=== PATIENT | male | born 1985 | race Caucasian/White ===

== ENCOUNTER 2021-07-25 14:49 | Emergency (ER) | payer BC, SELFPAY ==
[2021-07-25 14:51] VITALS: BP 134/97; PULSE 91; RESP 20; TEMP 36.9; O2SAT 98; BMI 25.1
[2021-07-25 15:46] LABS: Chloride 100 mmol/L (98-107); Potassium 4.1 mmoL/L (3.5-5.1); Sodium 138 mmol/L (136-145)
[2021-07-25 15:49] LABS: Alanine Aminotransferase 29 U/L (12-78); Albumin Level 4.4 g/dl (3.5-5.0); Albumin/Globulin Ratio 1.6 (1.1-1.8); Alkaline Phosphatase 59 U/L (38-126); Anion Gap 13.1 mEq/L (5-15); Aspartate Amino Transferase 42 U/L (17-59); Bilirubin,Total 0.7 mg/dl (0.2-1.3); Blood Urea Nitrogen 16 mg/dl (9-20); Calcium 9.3 mg/dl (8.4-10.2); Carbon Dioxide 29 mmol/L (22.0-30.0); Creatinine Clearance Estimated 112 mL/min (50-200); Estimated Glomerular Filt Rate 84 ml/min (>60); GFR (African American) 101 ML/MIN (>60); Globulin 2.8 g/dL (1.3-3.2); Glucose 101 mg/dl (74-100); Lipase 66 U/L (23-300); Total Protein,Serum 7.2 g/dl (6.3-8.2)
[2021-07-25 15:57] LABS: Basophils % 0.3 % (0.1-2.0); Eosinophils % 0.4 % (0.1-12.0); Hemoglobin 15.1 g/dL (14.1-18.0); Lymphocytes # 1.7 K/mm3 (0.7-4.5); Lymphocytes % 27.9 % (10-50); Mean Corpuscular HGB Conc 33.5 g/dL (31.8-35.4); Mean Corpuscular Hemoglobin 30.6 pg (27.0-31.2); Mean Corpuscular Volume 91.1 fl (80-94); Mean Platelet Volume 7.2 fl (7.4-10.4); Monocytes # 0.3 K/mm3 (0.1-1.0); Monocytes % 5.2 % (1.7-9.3); Neutrophils % 66.2 % (37.0-80.0); Platelet Count 257 K/mm3 (142-424); Red Blood Count 4.94 M/mm3 (4.60-6.20); Red Cell Distribution Width 13.1 % (11.5-17.5); White Blood Count 6.1 K/mm3 (4.8-10.8)
--- NOTE | 2021-07-25 16:56 | PC.NURSE ---
Pt medicated per MAY. Updated on POC. No new needs at this time
--- NOTE | 2021-07-25 17:14 | HMH.EDGENADL ---
ED Disposition Clinical Impression: Abdominal pain Qualifiers: Abdominal location: unspecified location Qualified Code(s): R10.9 - Unspecified abdominal pain Disposition: Home, Self-Care Condition on Discharge: Good Instructions: DI for Acute Abdominal Pain Additional Instructions: [id number] Pepcid AC. Continue stool softeners. Follow-up with your primary care provider, call to make appointment. Additional instructions for ABDOMINAL PAIN: See your physician as soon as possible for further evaluation. Return immediately if worsening abdominal pain, vomiting, shortness of breath, fever, vomiting of blood or abdominal distention. Referrals: Rory Lara MD [Primary Care Provider] - - Critical Care Critical Care Time: No Attestation: On 07/25/21, the high probability of a clinically significant, sudden or life threatening deterioration of the following system(s) required my full and direct attention, intervention and personal management. The time I documented below is in addition to time spent performing reported procedures but includes the following listed in this critical care notation. Medical Decision Making - Inocencio Inquiry Pt receiving controlled substance: No Vital Signs: 07/25/21 14:51 Temperature 98.5 F Temperature Source Oral Pulse Rate [Right Radial] 91 H Respiratory Rate 20 Blood Pressure [Right Arm] 134/97 H Blood Pressure Mean [Right Arm] 109 Blood Pressure Source [Right Arm] Automatic Cuff Blood Pressure Position [Right Arm] Sitting 02 Sat by Pulse Oximetry 98 Oxygen Delivery Method Room Air - Lab Data Lab Results 07/25/21 15:28: WBC 6.1, RBC 4.94, Hgb 15.1, Hct 45.0, MCV 91.1, MCH 30.6, MCHC 33.5, RDW 13.1, Plt Count 257, MPV 7.2 L, Neut % (Auto) 66.2, Lymph % (Auto) 27.9, [place] % (Auto) 5.2, Eos % (Auto) 0.4, Baso % (Auto) 0.3, Neut # (Auto) 4.0, Lymph # (Auto) 1.7, [place] # (Auto) 0.3, Eos # (Auto) 0.0, Baso # (Auto) 0.0 07/25/21 15:28: Sodium 138, Potassium 4.1, Chloride 100, Carbon Dioxide 29, Anion Gap 13.1, BUN 16, Creatinine 1.00, Estimated Creat Clear 112, Estimated GFR 84, Est GFR ( Amer) 101, Glucose 101 H, Calcium 9.3, Total Bilirubin 0.7, AST 42, ALT 29, Alkaline Phosphatase 59, Total Protein 7.2, Albumin 4.4, Globulin 2.8, Albumin/Globulin Ratio 1.6, Lipase 66 07/25/21 17:25: Urine Color Yellow, Urine Appearance Clear, Urine pH 6.0, Ur Specific [place] 1.020, Urine Protein Negative, Urine Glucose (UA) Negative, Urine Ketones 2+, Urine Blood Trace-i, Urine Nitrate Negative, Urine Bilirubin Negative, Urine Urobilinogen 0.2, Ur Leukocyte Esterase Negative, Urine RBC Occasional, Urine WBC None, Ur Squamous Epith Cells None, Urine Bacteria Trace Result diagrams: 07/25/21 15:28 07/25/21 15:28 Orders (Tests/Meds): ED MEDICATIONS Generic Name Dose Route Start Last Admin Trade Name Freq PRN Reason Stop Dose Admin Sodium Chloride 10 ml 07/25/21 15:23 Sodium Chloride 0.9% 10ml Flush Syringe IV 08/24/21 15:22 NEEDED PRN Maintain IV Site Discontinued Medications Generic Name Dose Route Start Last Admin Trade Name Freq PRN Reason Stop Dose Admin Lactated Ringer's 1,000 mls @ 999 mls/hr 07/25/21 16:33 07/25/21 16:52 Lactated Ringer's 1000 Ml Bag IV 07/25/21 17:33 999 mls/hr .Q1H1M ONE Administration Iopamidol 75 ml 07/25/21 18:43 07/25/21 18:44 Iopamidol-370 (76%);100ml Bottle IV 07/25/21 18:44 75 ml ONCE ONE Administration Sodium Chloride 10 ml 07/25/21 18:43 07/25/21 18:44 Sodium Chloride 0.9% 10ml Syr (Rad Only) IV 07/25/21 18:44 10 ml ONCE ONE Administration - CT Data CT Scan: Abdomen, Pelvis Time Received: 20:[address] Reviewed: Yes: I have viewed the radiologist's interpretation Findings Narrative: PROCEDURE INFORMATION: Exam: CT Abdomen And Pelvis With Contrast Exam date and time: 07/25/2021 6:32 PM Age: 36 years old Clinical indication: Abdominal pain; Patient HX: Epigastric pain
[2021-07-25 17:33] LABS: Microscopic, Urine URINE MICROSCOPIC (MICROSCOPIC)
[2021-07-25 17:51] LABS: Appearance,Urine CLEAR (Clear); Bilirubin,Urine Negative (Negative); Blood, Urine TRACE-I (Negative); Color,Urine YELLOW (Yellow); Glucose,Urine (UA) Negative (Negative); Ketones,Urine 2+ (Negative); Leukocyte Esterase,Urine Negative (Negative); Nitrate,Urine Negative (Negative); Protein,Urine Negative (Negative); Urobilinogen,Urine 0.2 EU/dl (0.2)
--- NOTE | 2021-07-25 18:11 | CT_ITS ---
PROCEDURE INFORMATION: Exam: CT Abdomen And Pelvis With Contrast Exam date and time: 07/25/2021 6:32 PM Age: 36 years old Clinical indication: Abdominal pain; Patient HX: Epigastric pain after eating; Additional info: Abdo pain epigast and llq TECHNIQUE: Imaging protocol: Computed tomography of the abdomen and pelvis with contrast. Radiation optimization: All CT scans at this facility use at least one of these dose optimization techniques: automated exposure control; mA and/or kV adjustment per patient size (includes targeted exams where dose is matched to clinical indication); or iterative reconstruction. Contrast material: ISOVUE; Contrast volume: 75 ml; Contrast route: IV; COMPARISON: No relevant prior studies available. FINDINGS: Liver: Normal. No mass. Gallbladder and bile ducts: Normal. No calcified stones. No ductal dilation. Pancreas: Normal. No ductal dilation. Spleen: Normal. No splenomegaly. Adrenal glands: Normal. No mass. Kidneys and ureters: Bosniak 1 cysts of the superior pole the right kidney measures 1.6 cm in diameter. No follow-up recommended. Stomach and bowel: Unremarkable. No obstruction. No mucosal thickening. Appendix: The appendix is not definitely identified, but there are no primary or secondary CT findings to suggest a diagnosis of acute appendicitis. Intraperitoneal space: Unremarkable. No free air. No significant fluid collection. Arteries: Unremarkable. No abdominal aortic aneurysm. Lymph nodes: Unremarkable. No enlarged lymph nodes. Urinary bladder: Unremarkable as visualized. Reproductive: Unremarkable as visualized. Bones/joints: Unremarkable. No acute fracture. Soft tissues: Normal. IMPRESSION: No CT findings that explain patient's symptoms. COMMENTS: Consistent with the [employer]'s Incidental Findings Committee white paper (J Am Juan Radiol 2018): Any incidental renal lesion less than 1 cm or classified as too small to characterize, or any incidental cystic renal lesion characterized as simple-appearing, is likely benign. No follow-up imaging is recommended for these lesions per consensus recommendations based on imaging criteria.
[2021-07-25 18:19] LABS: Bacteria,Urine Trace /lpf; RBC,Urine Occasional #/hpf (0-3)
[2021-07-25 20:20] VITALS: BP 124/74; PULSE 90; RESP 20; TEMP 36.9; O2SAT 98
== END 2021-07-25 20:21 | disposition home or self-care (01) ==
PROVIDERS: Emergency Provider Emergency Medicine; PCP Family Medicine
DX: R10.13 Epigastric pain (principal)
CPT/HCPCS: 74177; 80053; 81001; 83690; 85025; 99284; Q9967

== ENCOUNTER → 2022-06-14 14:31 | Outpatient (CLI) | payer BC, SELFPAY ==
--- NOTE | 2022-06-14 14:36 | XR_ITS ---
FINAL REPORT CLINICAL HISTORY: midline thoracic back pain, pain in left si joint COMPARISON: None FINDINGS: THORACIC SPINE: Three views of the thoracic spine were obtained. There is no fracture present. There is no malalignment. There are no significant degenerative changes. IMPRESSION: No acute process. LUMBAR SPINE: Five views of the lumbar spine were obtained. There is no fracture present. There is no malalignment. There are mild degenerative changes. Small osteophytes are noted. IMPRESSION: Degenerative change in osteophytes with no acute process. Reviewed, Interpreted and Dictated by Prem Santiago III, MD Transcribed by Hilary Williamson Authenticated and [facility]
== END ==
LOC: RAD 14:33
PROVIDERS: PCP Family Medicine; Visit Provider Physician Assistant
DX: M54.6 Pain in thoracic spine (principal); M53.3 Sacrococcygeal disorders, not elsewhere classified; M54.50 Low back pain, unspecified
CPT/HCPCS: 72084

== ENCOUNTER 2024-09-24 10:17 | Outpatient (CLI) | payer OTHER, SELFPAY ==
--- OUTSIDE RECORDS SUMMARY | 2024-07-23 07:15 | XMS_ITS ---
Author Organization [facility] Address [address] [facility] [address] [id number] Care Team Providers Care Instrument And Controls Technician Name Role Phone Rory Lara Unavailable [phone] Sunshine Baumann Unavailable [phone] Allergies No Known Allergies REASON FOR VISIT BLOOD WORK Medications Medication SIG (Take, Route, Frequency, Duration) Notes Start Date End Date Status EpiPen 2-Mikey 0.3 MG/0.3ML as directed Injection 09/20/2022 Active Lisinopril 20 MG 1 tab(s) orally once a day Active hydrOXYzine HCl 25 MG 1 tablet as needed Orally every 8 hrs 10/24/2023 Active Nystatin 754975 UNIT/GM 1 application Ex ternally Three times a day 01/16/2024 Active Ivermectin 3 MG 5 tab Orally Once a day 01/16/2024 Not-Taking Xyzal Allergy 24HR 5 MG 1 tablet in the evening Orally Once a day; Duration: 30 day(s) Active Methadone HCl 40 MG 1.75 tablets Orally Once a day Active busPIRone HCl 10 MG 1 tablet Orally Thre e times a day; Duration: 30 day(s) Active clomiPHENE Citrate 50 MG 1 tab(s) orally once a day; Duration: 5 day(s) Active Problems Problem Type SNOMED Code ICD Code Onset Dates Problem Status W/U Status Risk Notes Problem Anxiety ([id number]) Anxiety (F41.9) Active confirmed Vital Signs Blood pressure systolic 108 mm Hg 07/24/19 25 Blood pressure diastolic 76 mm Hg 025 Heart Rate 92 /min 07/23/2024 Height 70 in 07/23/2024 Weight 168 lbs 07/23/2024 BMI 24.1 kg/m2 07/23/2024 Encounters Encounter Location Date Provider Diagnosis [facility] [address] [place] [id number] 07/23/2024 Sunshine Baumann Anxiety F41.9 ; Hair loss L65.9 and BMI 24.0-24.9, adult Z68.24 Assessments Encounter Date Diagnosis (ICD Code) Assessment Notes Treatment Notes Treatment Clinical Notes Section Notes 07/23/2024 Anxiety (ICD-10 - F41.9) 07/23/2024 Hair loss (ICD-10 - L65.9) Will remove items from his pockets and see if hair loss continues. If so, will get labs. 07/23/2024 BMI 24.0-24.9, adult (ICD-10 - Z68.24) Plan Of Treatment Medication Medication Name Sig Start Date Stop Date Notes busPIRone HCl 10 MG 1 tablet Orally Thre e times a day; Duration: 30 day(s) Treatment Notes Assessment Notes Hair loss Will remove items fr om his pockets and see if hair loss continues. If so, will get labs. Next Appt Details Follow Up: prn, Reason: Progress Notes * JULIANNA GIFFORDOB:1985 (39 yo M)Acc No.[id number]:07/23/2024 Progress Notes Patient: EDUARDO PELAEZ Provider: PAVEL Alexis :1985 A ge:39 Y S ex:Male Date:07/23/2024 Address:[address] [place] [address] Subjective: * Chief Complaints: * 1 . BLOOD WORK. * HPI: H PI: 39 year old male presents with c/o Patient is here today for? Pt has noticed he has been losing patches of hair on his legs. He is unsure if it is due to his pants rubbing or something else.. P sychology: He has been getting buspar from an online physician. He would like this prescribed here and the dose increased. * ROS: D ERMATOLOGY: no R adri. n o H sheela. G ASTROENTEROLOGY: no N ausea. n o V omiting. U ROLOGY: no D ifficulty urinating. n o B lood in urine. * Medical History: H ypertension, Seasonal Allergies, Herpes labialis, Testosterone deficiency, Vitamin B 12 deficiency, Dyslipidemia, Opioid addiction - attending [facility]. * Surgical History: L T Hand, Third Digit 1999. * Family History: F ather: alive 64 yrs, diagnosed with Hypertension. M other: , Hemachromatosis.?Paternal Grand Father: diagnosed with Cancer. P aternal Grand Mother: diagnosed with Hypertension, Cancer. M aternal Grand Father: diagnosed with Cancer. M aternal Grand Mother: diagnosed with Hypertension. * Social History: C URRENT TOBACCO USE: No . A lcohol: no. Past smoking status: previous history. * Medications: T aking busPIRone HCl 10 MG Tablet 1 tablet Orally Twice a day , Taking Xyzal Allergy 24HR 5 MG Tablet 1 tablet in the evening Orally Once a day , Taking Methadone HCl 40 MG Tablet Soluble 1.75 tablets Orally Once a day , Taking clomiPHENE Citrate 50 MG Tablet 1 tab(s) orally once a day , Taking EpiPen 2-Mikey 0.3 MG/0.3ML Solution Auto-injector as directed Injection , Taking Lisinopril 20 MG Tablet 1 tab(s) orally once a day , Taking hydrOXYzine HCl 25 MG Tablet 1 tablet as needed Orally every 8 hrs , Taking Nystatin 952489 UNIT/GM Cream 1 application Externally Three times a day , Not-Taking Ivermectin 3 MG Tablet 5 tab Orally Once a day , Medication List reviewed and reconciled with the patient * Allergies: N .K.D.A. Objective: * Vitals: W t: 168, Temp: 98.3, BP: 108/76, HR: 92, Nurse: nasra, Ht: 70, BMI:24.1. * Examination: P sychology: General Appearance: N AD. G rooming : a dequate.?Eye contact : n ormal. M ood : p leasant. H eart: R SR. L ungs: c lear to auscultation. N eurologic Exam: I ntact, gait normal. G eneral Examination: Skin: patches of hair loss on the bilateral legs around where his pockets holding large amounts of items have been rubbing. Assessment: * Assessment: 1. A nxiety - F41.9 (Primary) 2 . H air loss - L65.9 3 .?BMI 24.0-24.9, adult - Z68.24 Plan: * Treatment: 2. H air loss Notes: Will remove items from his pockets and see if hair loss continues. If so, will get labs.? * Procedure Codes: 3 074F SYST BP LT 130 MM HG, 3078F DIAST BP < 80 MM HG * Follow Up: p rn * Images: Billing Information: * Visit Code: 33195 Office Visit, Est Pt., Level 3. * Procedure Codes: 3074F SYST BP LT 130 MM HG. 3078F DIAST BP < 80 MM HG. * Electronic signature of PAVEL Loco on 09/24/2024 at 10:21 AM EDT Sign off status: Pending * Provider: PAVEL Alexis Date: 0 07/23/2024 Generated for Sonia morales/Jhonatan/eTransmitting on: 0 09/24/2024 10:21 AM EDT History and Physical Notes * HPI (History of Present Illness) Category Sub-Category Detail Notes Category Not es HPI Patient is here today for Pt has noticed he has been losing patches of hair on his legs. He is unsure if it is due to his pants rubbing or something else. Examination Category Sub-Category Detail Notes Category Not es General Examination Skin: patches of h air loss on the bilateral legs around where his pockets holding large amounts of items have been rubbing Psychology Heart: RSR Lungs: clear to auscultatio n General Appearance: NAD Neurologic Exam: Intact, gait normal Grooming : adequate Eye contact : normal Mood : pleasant
--- OUTSIDE RECORDS SUMMARY | 2024-09-09 12:15 | XMS_ITS ---
Author Organization [facility] Address [address] [id number] Care Team Providers Care Professor Of Political Science Name Role Phone Rory Lara Unavailable [phone] Sunshine Baumann Unavailable [phone] Allergies No Known Allergies REASON FOR VISIT BP meds Medications Medication SIG (Take, Route, Frequency, Duration) Notes Start Date End Date Status hydrOXYzine HCl 25 MG 1 tablet as needed Orally every 8 hrs 10/24/2023 Active Ivermectin 3 MG 5 tab Orally Once a day 01/16/2024 Not-Taking Nystatin 015859 UNIT/GM 1 application Ex ternally Three times a day 01/16/2024 Active busPIRone HCl 10 MG 1 tablet Orally Thre e times a day; Duration: 30 day(s) Active EpiPen 2-Mikey 0.3 MG/0.3ML as directed Injection 09/20/2022 Active Methadone HCl 40 MG 1 tablet Orally Once a day Active clomiPHENE Citrate 50 MG 1 tab(s) orally once a day; Duration: 5 day(s) Active Flonase Allergy Relief 50 MCG/ACT 1 spray in each nostril Nasally Twice a day Active Xyzal Allergy 24HR 5 MG 1 tablet in the evening Orally Once a day; Duration: 30 day(s) Active cloNIDine HCl 0.1 MG 1 tablet Orally aubrey ry night; Duration: 30 days 09/09/2024 Active Vital Signs Blood pressure systolic 112 mm Hg 09/10/19 25 Blood pressure diastolic 70 mm Hg 025 Heart Rate 82 /min 09/09/2024 Height 70 in 09/09/2024 Weight 171.4 lbs 09/09/2024 BMI 24.59 kg/m2 09/09/2024 Encounters Encounter Location Date Provider Diagnosis [facility] [address] [place] [id number] 09/09/2024 Sunshine Baumann Opioid withdrawal F11.93 and BMI 24.0-24.9, adult Z68.24 Assessments Encounter Date Diagnosis (ICD Code) Assessment Notes Treatment Notes Treatment Clinical Notes Section Notes 09/09/2024 Opioid withdrawal (ICD-10 - F11.93) Will stop the lisinopril while taking clonidine and monitor BP. 09/09/2024 BMI 24.0-24.9, adult (ICD-10 - Z68.24) Plan Of Treatment Medication Medication Name Sig Start Date Stop Date Notes Lisinopril 20 MG 1/4 tab orally once a day cloNIDine HCl 0.1 MG 1 tablet Orally aubrey ry night; Duration: 30 days 09/09/2024 Treatment Notes Assessment Notes Opioid withdrawal Will stop the lisino pril while taking clonidine and monitor BP. Next Appt Details Follow Up: 1 month, Reason: Progress Notes * JULIANNA GIFFORDOB:1985 (39 yo M)Acc No.[id number]:09/09/2024 Progress Notes Patient: EDUARDO PELAEZ Provider: PAVEL Alexis :1985 A ge:39 Y S ex:Male Date:09/09/2024 Address:[address] [place] [address] Subjective: * Chief Complaints: * 1 . BP meds. * HPI: C ardiology: Blood Pressure Elevated H e is only taking 1/4 of his lisinopril but is trying to come off of methadone. He would like to try some clonidine.. * ROS: D ERMATOLOGY: no R adri. n o H sheela. G ASTROENTEROLOGY: no N ausea. n o V omiting. U ROLOGY: no D ifficulty urinating. n o B lood in urine. * Medical History: H ypertension, Seasonal Allergies, Herpes Labialis, Testosterone Deficiency, Vitamin B 12 deficiency, Dyslipidemia, Opioid addiction - attending [facility]. * Surgical History: L T Hand, Third Digit 1999, Medial Branch Ablation Lumbar 2024. * Hospitalization/Major Diagno stic Procedure: D enies Past Hospitalization. * Family History: F ather: alive 64 yrs, diagnosed with Hypertension. M other: , Hemachromatosis.?Paternal Grand Father: diagnosed with Cancer. P aternal Grand Mother: diagnosed with Cancer, Hypertension. M aternal Grand Father: diagnosed with Cancer. M aternal Grand Mother: diagnosed with Hypertension. * Social History: C URRENT TOBACCO USE: No . A lcohol: no. Past smoking status: previous history. * Medications: T aking Flonase Allergy Relief 50 MCG/ACT Suspension 1 spray in each nostril Nasally Twice a day , Taking Xyzal Allergy 24HR 5 MG Tablet 1 tablet in the evening Orally Once a day , Taking Methadone HCl 40 MG Tablet Soluble 1 tablet Orally Once a day , Taking clomiPHENE Citrate 50 MG Tablet 1 tab(s) orally once a day , Taking EpiPen 2-Mikey 0.3 MG/0.3ML Solution Auto-injector as directed Injection , Taking Lisinopril 20 MG Tablet 1/4 tab orally once a day , Taking hydrOXYzine HCl 25 MG Tablet 1 tablet as needed Orally every 8 hrs , Taking Nystatin 695892 UNIT/GM Cream 1 application Externally Three times a day , Taking busPIRone HCl 10 MG Tablet 1 tablet Orally Three times a day , Not-Taking Ivermectin 3 MG Tablet 5 tab Orally Once a day * Allergies: N .K.D.A. Objective: * Vitals: W t: 171.4, Temp: 98.0, BP: 112/70, HR: 82, Nurse: DANNY, Ht: 70, BMI:24.59. * Examination: G eneral Examination: General Appearance: N AD. C hest: n ormal shape and expansion. H eart: R SR. L ungs: c lear to auscultation. Assessment: * Assessment: 1. O pioid withdrawal - F11.93 (Primary) 2 . B NH 24.0-24.9, adult - Z68.24? Plan: * Treatment: * Procedure Codes: 1 036F TOBACCO NON-USER, G8420 BMI<30 AND >=22 CALC & DOCU, G8771 BP SCR PRFRM RCMDD DEFIND SCR INTVL, G8752 MOST RECENT SYSTOLIC BP < 140MM HG, G8754 MOST RECENT DIASTOLIC BP < 90MM HG * Follow Up: 1 month * Images: Billing Information: * Visit Code: 14504 Office Visit, Est Pt., Level 3. * Procedure Codes: 1036F TOBACCO NON-USER. G8420 BMI<30 AND >=22 CALC & DOCU. G8783 BP SCR PRFRM RCMDD DEFIND SCR INTVL. G8752 MOST RECENT SYSTOLIC BP < 140MM HG. G8754 MOST RECENT DIASTOLIC BP < 90MM HG. * Electronic signature of PAVEL Loco on 09/24/2024 at 10:22 AM EDT Sign off status: Pending * Provider: PAVEL Alexis Date: 0 09/09/2024 Generated for Sonia morales/Jhonatan/Isidrosmitting on: 0 09/24/2024 10:22 AM EDT History and Physical Notes * HPI (History of Present Illness) Category Sub-Category Detail Notes Category Not es Cardiology Blood Pressure Elevated He is on ly taking 1/4 of his lisinopril but is trying to come off of methadone. He would like to try some clonidine. Examination Category Sub-Category Detail Notes Category Not es General Examination Heart: RSR Lungs: clear to auscultatio n General Appearance: NAD Chest: normal shape and exp ansion
--- OUTSIDE RECORDS SUMMARY | 2024-09-24 10:22 | XMS_ITS | Patient Health Record ---
Author Organization [facility] [address] [id number] Care Team Providers Care Ophthalmic Medical Assistant Name Role Phone Rory Lara Unavailable [phone] Sunshine Baumann Unavailable [phone] Allergies No Known Allergies Results Component Value Reference Range Notes CBC Fingerstick (in house) Reviewed date:06/07/2024 05:19:01 PM Interpretation: Performing Lab: Notes/Report: wbc 4.9 3.5 - 10 lym 28.8 15 - 50 mid 8.0 2 - 15 gran 63.2 35 - 80 rbc 4.79 3.5 - 5.5 hgb 14.3 11.5 - 16.5 hct 41.9 35 - 55 mcv 87.6 75 - 100 mch 29.8 25 - 35 mchc 34.1 31 - 38 plat 97 100 - 400 Reason For Referral No Information Medications Medication SIG (Take, Route, Frequency, Duration) Notes Start Date End Date Status cloNIDine HCl 0.1 MG 1 tablet Orally aubrey night; Duration: 30 days 09/09/2024 Active Flonase Allergy Relief 50 MCG/ACT 1 spray in each nostril Nasally Twice a day Active clomiPHENE Citrate 50 MG 1 tab(s) orally once a day; Duration: 5 day(s) Active Methadone HCl 40 MG 1 tablet Orally Once a day Active busPIRone HCl 10 MG 1 tablet Orally Thre e times a day; Duration: 30 day(s) Active hydrOXYzine HCl 25 MG 1 tablet as needed Orally every 8 hrs 10/24/2023 Active Lisinopril 5 MG 1 tablet Orally Once a day; Duration: 30 days 09/17/2024 Active Escitalopram Oxalate 5 MG 1 tablet Orall y Once a day; Duration: 30 days 09/17/2024 Active Immunizations Vaccine Route Administration Date Status Comme nts COVID 19 Moderna Unknown 06/01/2021 Administered Problems Problem Type SNOMED Code ICD Code Onset Dates Problem Status W/U Status Risk Notes Problem Sinusitis (01606992) Sinusitis (J32.9) Active confirmed Problem Anxiety (10764159) Anxiety (F41.9) Active confirmed Problem HBP (high blood pressure) (I10) Active confirmed Problem Dyslipidemia (689992583) Dyslipidemia (E78.5) Active confirmed Problem Nondependent opioid abuse in remission (380133447) Opioid abuse, in remission (F11.10) Active confirmed Vital Signs Heart Rate 79 /min 09/24/2024 Blood pressure diastolic 86 mm Hg 09/24/2024 Height 70 in 09/24/2024 Blood pressure systolic 118 mm Hg 09/24/2024 Weight 171.4 lbs 09/24/2024 BMI 24.59 kg/m2 09/24/2024 Encounters Encounter Location Date Provider Diagnosis [facility] [address] [place], [place] [id number] 10/24/2023 Rory Carson Insect bite, unspeci fied site, initial encounter W57.XXXA and Cellulitis, unspecified cellulitis site L03.90 [facility] [address] [place], [place] [id number] 01/16/2024 Sunshine Baumann Scabies B86 and Yeas t infection B37.9 [facility] [address] [place], [place] [id number] 04/19/2024 Rory Carson Left-sided chest wal l pain R07.89 [facility] [address] [facility] [address] [place], [place] [id number] 06/04/2024 Sunshine Baumann Acute URI J06.9 [facility] [address] [place], [place] [id number] 07/23/2024 Sunshine Baumann Anxiety F41.9 ; Hair loss L65.9 and BMI 24.0-24.9, adult Z68.24 [facility] [address] [facility] [address] [place] [id number] 09/09/2024 Sunshine Baumann Opioid withdrawal F1 1.93 and BMI 24.0-24.9, adult Z68.24 [address] [place] [id number] 09/24/2024 Sunshine Baumann Dyspepsia R10.13 ; Vitamin B 12 deficiency E53.8 ; Dyslipidemia E78.5 and HBP (high blood pressure) I10 [facility] [address] [place] [id number] 09/17/2024 Sunshine Baumann Assessments Encounter Date Diagnosis (ICD Code) Assessment Notes Treatment Notes Treatment Clinical Notes Section Notes 10/24/2023 Insect bite, unspecified site, initial encounter (ICD-10 - W57.XXXA) 01/16/2024 Scabies (ICD-10 - B86) Will give ivermectin and he will retreat in 2 weeks and clean all of the house and bedding as he did before. 01/16/2024 Yeast infection (ICD-10 - B37.9) 04/19/2024 Left-sided chest wall pain (ICD-10 - R07.89) symptomatic treatment of pain. Return if worsening of pain or developement of new symptoms 06/04/2024 Acute URI (ICD-10 - J06.9) fluids, rest, supportive measures for fever/symptom relief, he will get Coricidin HBP OTC 07/23/2024 Anxiety (ICD-10 - F41.9) 07/23/2024 Hair loss (ICD-10 - L65.9) Will remove items from his pockets and see if hair loss continues. If so, will get labs. 09/09/2024 BMI 24.0-24.9, adult (ICD-10 - Z68.24) 09/09/2024 Opioid withdrawal (ICD-10 - F11.93) Will stop the lisinopril while taking clonidine and monitor BP. 09/24/2024 Dyspepsia (ICD-10 - R10.13) 09/24/2024 Vitamin B 12 deficiency (ICD-10 - E53.8) 10/24/2023 Cellulitis, unspecified cellulitis site (ICD-10 - L03.90) 09/24/2024 Dyslipidemia (ICD-10 - E78.5) 07/23/2024 BMI 24.0-24.9, adult (ICD-10 - Z68.24) 09/24/2024 HBP (high blood pressure) (ICD-10 - I10) Plan Of Treatment Pending Test Test Name Order Date CBC Venipuncture (in house) 09/24/2024 H-Urea Breath Test 09/24/2024 P-Vitamin B12 09/24/2024 P-Comprehensive Metabolic Panel (CMP) P-Lipid Panel 09/24/2024 Insurance Providers Payer Name Payer Address Payer Phone Subscriber Number Group Number Insured Name Patient Relationship to Insured Coverage Start Date Coverage End Date [facility] [address] [place] [address] [id number] EDUARDO GIFFORD Self - patient is the insured Medical (General) History Medical History History ICD Code Hypertension Seasonal Allergies Herpes Labialis Testosterone Deficiency Vitamin B 12 deficiency Dyslipidemia Opioid addiction - attending [facility] Surgical History Surgery Date(Month/Year) LT Hand, Third Digit 1999 Medial Branch Ablation Lumbar 2024
--- OUTSIDE RECORDS SUMMARY | 2024-09-24 10:22 | XMS_ITS | Data Portability ---
Author Organization [place] - [facility] Address [address] [place] [id number] Care Team Providers Care Garbage Man Name Role Phone SHAHZAD ANDERSON Primary Care Provider Assessment Encounter Date Assessment Date Assessment LastModified by Organization Details LastModified Time 06/07/2020 06/07/2020 Transcribed by ISAAC Kelly [email or web address] Not available 06/07/2020 16:27:20 06/09/2020 06/09/2020 Transcribed by ISAAC Kelly [email or web address] Not available 06/09/2020 09:38:18 Plan of Treatment Reminders Order Date Submit Date Provider Last Modified By Organization Details Last Modified Time Details Appointments None recorded. Lab None recorded. Referral None recorded. Procedures None recorded. Surgeries None recorded. Imaging XR, ankle, 3 or more view 2020 021 [email or web address] 24 In-House Results, For Internal Use Only, Do Not Delete/merge, [id number] 13:15:28 XR, ankle, 3 or more view 2020 021 [email or web address] 24 In-House Results, For Internal Use Only, Do Not Delete/merge, 21:47:51 Medication Orders Voltaren 1 % topical gel 2020 021 [email or web address] 24 [facility], [address] [place], [place], [id number], 13:15:28 Mobic 15 mg tablet 2020 021 [email or web address] 24 [facility], [address] [place], [place], [id number], 21:47:51 Patient TargetsNo targets recorded. Patient Instructions Encounter Date Encounter Id Patient Instructions Last Modified By Organization Details Last Modified Time 06/07/2020 [id number] eating healthy foods: care instructions [email or web address] Not available 06/07/2020 21:47:51 ankle sprain: rehab exercises [email or web address] Not available 06/07/2020 21:47:51 The patient was advised to discontinue all other NSAIDS while taking the prescribed NSAID at this time. Advised to take with meals, and to discontinue and notify clinic if experiencing sign/symptoms of GI upset/dark and/or bloody stools. The patient was encouraged to take a proton pump inhibitor/H2 receptor neva such as Pepcid/Prilosec while consuming anti-inflammatori es. Patient advised to perform home exercises, twice per day, as instructed per handout/physical therapy plan. Limit activity to low-impact activities: swimming, water aerobics, elliptical, or stationary bike with low resistance. May transition to daily activities as tolerated once no longer experiencing pain in 1 month, but avoid anything that worsens symptoms or causes pain. [email or web address] Not available 06/07/2020 16:29:14 f/u with [facility] in 1 month if pain persists [email or web address] Not available 06/07/2020 16:29:27 06/09/2020 [id number] eating healthy foods: care instructions [email or web address] Not available 06/09/2020 13:15:28 Patient advised to begin Mobic as prescribed. Continue ROM home exercises as directed. Patient advised to wear ASO brace with weight bearing and may wean off crutches in 1 to 2 weeks. Avoid prolonged standing and/or walking. [email or web address] Not available 06/09/2020 09:46:17 f/u with [facility] in 4 weeks [email or web address] Not available 06/09/2020 09:46:21 Reason for Referral None Reported. Results Created Date Observation Date Name Description Value Unit Range Abnormal Flag Note LastModifiedBy Organization Detail LastModifiedTime Result Notes None recorded. Problems Name Problem SNOMED Code Status Onset Date Resolution Date Notes Provider Name and Address Organization Details Recorded Time No current problems or disability 316704470 Active Karley root [facility] 15:28:42 Pain of right ankle joint 8848740922692 9106 Active 2020 Elyssa root, [facility] 16:28:09 Sprain of right ankle 5826802262205 9105 Active 2020 Elyssa root, [facility] 16:28:10 Problem Notes None recorded. Procedures Surgical History Date Name Laterality Status Provider Name and Address Organization Details Recorded Time Hand Surgery completed Karley FOX [facility] 06/07/2020 15:31:15 Imaging Results None recorded. Procedure Notes None recorded. Medical Equipment None Reported. Allergies No known drug allergies Medications Name Sig Start Date Stop Date Status Note LastModified by Organization Details LastModified Time amoxicillin 500 mg capsule TAKE 1 CAPSULE BY MOUTH EVERY 12 HOURS FOR 10 DAYS 06/07 completed Not Available Not Available Not Available prednisone 10 mg tablet 06/07 completed Not Available Not Available Not Available clomiphene citrate 50 mg tablet 06/07 completed Not Available Not Available Not Available valacyclovi r 1 gram tablet active Not Available Not Available Not Available meloxicam 15 mg tablet Take 1 tablet every day by oral route. active Not Available Not Available No t Available lisinopril 20 mg tablet TAKE 1 TABLET BY MOUTH EVERY DAY active Not Available Not Available No t Available metronidazo le 500 mg tablet TAKE 1 TABLET BY MOUTH TWICE A DAY AVOID ALCOHOL 06/07 completed Not Available Not Available Not Available acyclovir 400 mg tablet TAKE 1 TABLET BY MOUTH THREE TIMES A DAY FOR 10 DAYS active Not Available Not Available No t Available cefadroxil 1 gram tablet TAKE 1 TABLET BY MOUTH EVERY DAY 06/07 completed Not Available Not Available Not Available levofloxaci n 750 mg tablet TAKE 1 TABLET BY MOUTH DAILY FOR 10 DAYS 06/07 completed Not Available Not Available Not Available cefdinir 300 mg capsule TAKE 1 CAPSULE BY MOUTH TWICE A DAY FOR 10 DAYS 06/07 completed Not Available Not Available Not Available fluticasone propionate 50 mcg/actuati on nasal spray,suspe nsion SPRAY 1 SPRAY INTO EACH NOSTRIL EVERY DAY active Not Available Not Available No t Available finasteride 1 mg tablet active Not Available Not Available Not Available amoxicillin 875 mg-mariola nolen clavulanate 125 mg tablet 06/07 completed Not Available Not Available Not Available Ventolin HFA 90 mcg/actuati on aerosol inhaler INHALE 1 PUFF BY MOUTH EVERY 4 HOURS 06/07 completed Not Available Not Available Not Available azithromyci n 500 mg tablet 06/07 completed Not Available Not Available Not Available methadone active Not Available Not Lora ilable Not Available Voltaren 1 % topical gel APPLY 2 GRAMS TO THE AFFECTED AREA(S) BY TOPICAL ROUTE 4 TIMES PER DAY 2020 active Not Available Not Available Not Avai lable Vitals Date Recorded Body height Body mass index (BMI) Body weight Provider Name and Address Organization Details Last Updated DateTime 06/07/2020 177.8 cm 25.1 kg/m2 88740.66 g Karley Kay [facility] 06/07/2020 15:26:49 Date Recorded Body height Body mass index (BMI) Body weight Provider Name and Address Organization Details Last Updated DateTime 06/09/2020 177.8 cm 25.1 kg/m2 75262.66 g Karley Kay [facility] 06/09/2020 08:16:49 Social History Question Answer Notes LastModified by Organizat ion Details LastModified Time Tobacco Smoking Status Former Smoker Karley Kay null, [place] - [facility] 06/07/2020 15:30:34 Do You Have An Advance Directive? No [email or web address] Information not available 06/07/2020 Auto Related Injury? No [email or web address] Information not available 06/07/2020 How Much Tobacco Do You Chew? None Information not available 06/07/2020 Who Is Your Employer? [employer] [email or web address] Information not available 06/07/2020 How Many Days In The Past Year Have You Had A Heavy Drinking Consumption (4+ Female, 5+ Male)? 0 [email or web address] Information not available 06/07/2020 Which Of Your Hands Is Dominant? Right [email or web address] Information not available 06/07/2020 Live Alone Or With Others? With Others [email or web address] Information not available 06/07/2020 Job Status Full-time [email or web address] Information no t available 06/07/2020 Stairs At Home No [email or web address] Informatio n not available 06/07/2020 Marital Status Single [email or web address] Informatio n not available 06/07/2020 What Was The Date Of Your Most Recent Tobacco Screening? 06/09/2020 [email or web address] Information not available 06/09/2020 If Injured, Is Litigation Ongoing? No [email or web address] Information not available 06/07/2020 Have You Ever Been Counseled For Unhealthy Alcohol Use? Yes [email or web address] Information not available 06/07/2020 How Much Tobacco Do You Smoke? No Information not available 06/07/2020 On What Date Was Tobacco Cessation Counseling Provided? 06/09/2020 [email or web address] Information not available 06/09/2020 Work Related Injury? No [email or web address] Information not available 06/07/2020 Sex: Unknown Functional Status Question Answer Note LastModified by Organizat ion Details LastModified Time What is your level of alcohol consumption? None [email or web address] Information not available 06/07/2020 Do you or have you ever used smokeless tobacco? Never used smokeless tobacco [email or web address] Information not available 06/07/2020 Are you able to care for yourself? 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 Former user of electronic cigarettes [email or web address] Information not available 06/07/2020 Mental Status None recorded. Family History Relationship Description Onset Age of this Age Resolved Age Notes LastModified by Organization Details LastModified Time Unspecified Relation Diabetes mellitus [email or web address] Not available 2020 15:28:58 Medical History Condition Response Other N High Blood Pressure Y Sleep apnea: CPAP or BIPAP N Stents (other than cardiac) N Bleeding Disorders N Thyroid problems N Parkinson's Disease N Metal Implants N Depression N Lung problems N Prostate Problems N Anemia N Liver problems N Kidney problems N Heart Stent N Ulcers N Headaches/Migraines N Implanted device N Peripheral Neuropathy N Anxiety Disorder N Chronic infection N Obesity N Arthritis N No Diseases or Conditions N Diabetes Type I or II N Blood Clot / DVT N HIV / AIDS N Seizures N Stroke/TIA N Reflux / GERD N High Cholesterol N Memory Loss N Dialysis N Blood clot in lung N Osteoporosis N Past Encounters Encounter ID Performer Location Encounter Start Date Encounter Closed Date Diagnosis/Indication Diagnosis SNOMED-CT Code Diagnosis ICD10 Code Diagnosis Note [id number] Varinder John MD [facility] [address] [place] [address] 06/07/2020 14:55:51 06/07/2020 16:30:22 Pain of right ankle joint 8061555665 4845154 M25.571 subacute ankle sprain Sprain of right ankle 11 40499884 2079706 S93.401A [id number] Varinder John [facility] [address] [facility] [place] [address] 06/09/2020 08:02:56 06/09/2020 09:47:39 Pain of right ankle joint 2517857493 7176979 M25.571 subacute ankle sprain, reinjury/a cute injury, grade I ATFL/CFL Health Concerns Section Related Observation LastModified by Organization Detai ls LastModified Time None Recorded Concern Status LastModified by Organization Details LastModified Time None Recorded Advance Directives Directive N: Payers Insurance Date Sequence Insurance Name Policy Number Policy Miguel Covered Member ID Miguel Member ID Guarantor Name 06/09/2020 1 [facility] [id number] Bill Buenrostro Newby [id number] Bill Newby 07/18/[address] [place] [address] [id number] Bill Buenrostro Odin [id number] Bill Newby Notes Date Note Type Note Provider Name and Address Organization Details Recorded Time 06/07/2020 text/html Mr. Newby is a 1 7 year old male who presents to the office today with right ankle pain. Patient reports to having pain for 2 months after twisting ankle. Patient describes lateral, moderate intermittent pain. Pain is exacerbated by prolonged standing/ walking. Pain is diminished by rest and tylenol. Varinder John MD [address] [place] [address], [phone], [facility] 06/11/2020 21:29:54 06/09/2020 text/html Ms. Newby is a 1 7 year old male who presents to the office today with right ankle pain. Patient states ankle folded under him early this AM. Patient describes moderate intermittent pain. Pain is exacerbated by prolonged standing/ walking. Pain is diminished by rest, ice and HEP. The Family, Social, Surgical, and Past Medical History were confirmed to be up to date by patient and were reviewed by [facility]. Varinder John MD [address] [place] [address], [phone], [facility] 06/11/2020 20:17:29
--- OUTSIDE RECORDS SUMMARY | 2024-09-24 10:22 | XMS_ITS | Referral Summary ---
Author Organization [employer] Address [address] [place] [address] Care Team Providers Care Cottage Attendant Name Role Phone Kevan Farooq MD Primary Care Provider [phone] Allergies No known active allergies Medications lisinopriL (ZESTRIL) 20 MG tablet Take 1 tablet (20 mg total) by mouth daily. Active methadone (DOLOPHINE) 10 MG tablet Take 7 tablets (70 mg total) by mouth daily. Max Daily Amount: 70 mg Active valACYclovir (VALTREX) 1000 MG tablet Take 1 tablet (1,000 mg total) by mouth daily. Active levocetirizine (XYZAL) 5 MG tablet Take 1 tablet (5 mg total) by mouth every evening. Active clomiPHENE (CLOMID) 50 mg tablet Take 0.5 tablets (25 mg total) by mouth every other day 3 times weekly. Active Social History Tobacco Use Types Packs/Day Years Used Date Smoking Tobacco: Former Cigarettes Smokeless Tobacco: Current Tobacco Cessation:Ready to Q uit: Not Asked; Counseling Given: Not Answered Alcohol Use Standard Drinks/Week Comments Never 0 (1 standard drink = 0.6 oz pur e alcohol) Interpersonal Safety Answer Date Record ed Family or friends hurt you Not on file 04/08 Family or friends insult you Not on file 11/2023 Family or friends threaten you Not on file 0 04/08/2023 Family or friends scream or curse at you Not on file 04/08/2023 Housing Stability Answer Date Recorded Living situation today Not on file Living situation problems Not on file 2023 Family and Community Support Answer Chidi e Recorded Help with Day to Day Activities Not on file 04/08/2023 Feeling Lonely or Isolated Not on file 04/08 Educational Attainment Answer Date Caesar rded Speak language other than Urdu at home Not on file 04/08/2023 Want help with school or training Not on file 04/08/2023 Depression Answer Date Recorded PHQ-2 Risk Not on file 04/08/2023 Disabilities Answer Date Recorded Difficulty concentrating Not on file 024 Difficulty doing errands alone Not on file 0 04/08/2023 Substance Use Answer Date Recorded Used prescription meds for non-medical reasons N ot on file 04/08/2023 Used illegal drugs past 12 months Not on file 04/08/2023 Sex and Gender Information Value Date Recorded Sex Assigned at Not on file Legal Sex Male 1:59 PM CDT Gender Identity Not on file Sexual Orientation Not on file Last Filed Vital Signs Vital Sign Reading Time Taken Comments Blood Pressure 115/69 03/30/2024 12:00 AM EST Pulse 64 03/30/2024 12:00 AM EST Temperature 36.7 C (98.1 F) 03/29/2024 8:12 PM EST Respiratory Rate 16 03/29/2024 8:12 PM EST Oxygen Saturation 94% 03/30/2024 12:00 AM EST Inhaled Oxygen Concentration - - Weight 87.4 kg (192 lb 9.2 oz) 03/29/2024 8:12 P M EST Height 177.8 cm (5' 10 ) 03/29/2024 8:12 PM EST Body Mass Index 27.63 03/29/2024 8:12 PM EST Plan of Treatment Not on file Insurance [facility] Care Teams Cottage Attendant Relationship Specialty Start Date End Date Kevan Farooq MD [address] [place] [address] PCP - General Family Medicine 03/29/24
--- OUTSIDE RECORDS SUMMARY | 2024-09-24 10:22 | XMS_ITS | Clinical Summary ---
Author Organization [employer] Address [address] [place] [address] Care Team Providers Care Power Plant Mechanic Name Role Phone Kevan Farooq MD Primary Care Provider [phone] Allergies No known active allergies Medications lisinopriL [...] Date Caesar rded Speak language other than Ukrainian at home Not on file 04/08/2023 Want [...] kg (192 lb 9.2 oz) 03/29/2024 8:12 PM EST Height 177.8 cm (5' 10 ) 03/29/2024 8:12 PM EST Body Mass Index 27.63 03/29/2024 8:12 PM EST Plan of Treatment Health Maintenance Due Date Last Done Comments Depression Screening (12+) 1995 Tobacco Cessation Counseling and Screening (12+) 1995 HIV Screening 1998 Hepatitis C Screening 2001 DTAP/TDAP/TD VACCINES (1 - Tdap) 2002 Lipid Panel 2018 COVID-19 VACCINE (2 - 2023-2 5 season) 2023 06/01/2021 Influenza Vaccine (Season Ended) 2024 01/31/20 18 Pneumococcal Vaccine: 0-49 Years Aged Out No longer eligible based on patient's age to complete this topic Insurance [employer] Care Teams Power Plant Mechanic Relationship Specialty Start Date End Date Kevan Farooq MD [address] [facility] [address] [place] [id number] PCP - General Family Medicine 03/29/24
[2024-09-26 14:22] LABS: H. pylori Breath Test Negative (Negative)
== END 2024-09-24 23:59 | disposition home or self-care (01) ==
LOC: LAB 10:19
PROVIDERS: PCP Physician Assistant; Visit Provider Physician Assistant
DX: R10.13 Epigastric pain (principal)
CPT/HCPCS: 83013